=== PATIENT | female | born 1955 | race Caucasian/White ===

== ENCOUNTER 2016-09-02 08:11 | Emergency (ER) | payer MEDICARE ==
[~2016-09-02] VITALS: Ht 170.2 cm; Wt 83.9 kg
[2016-09-02 08:14] VITALS: BP 164/92
--- NOTE | 2016-09-02 08:29 | ED NECK/BACK PAIN COMPLAINT ---
History of Present Illness General Chief Complaint: Low Back Pain/Injury Stated Complaint: LOWER BACK PAIN, RADIATES TO LLE, X 2 WEEKS Source: patient, family, old records Exam Limitations: no limitations Vital Signs & Intake/Output Vital Signs & Intake/Output Vital Signs Date Time Temp Pulse Resp B/P B/P Pulse O2 O2 Flow FiO2 Mean Ox Delivery Rate 09/02 0814 98.6 74 16 164/92 95 Room Air Allergies Coded Allergies: bee venom protein (honey bee) (UNKNOWN 09/02/16) Reconcile Medications Cyclobenzaprine HCl 10 MG TABLET 1 TAB PO TID PRN SPASMS (Reported) Cyclobenzaprine HCl 10 MG TABLET 1 TAB PO Q8P PAIN OR SPASM Losartan Potassium (Cozaar) 25 MG TABLET 1 TAB PO DAILY HEART (Reported) Oxycodone HCl/Acetaminophen (Percocet 5-325 MG Tablet) 5 MG-325 MG TABLET 1-2 TAB PO Q6P PRN PAIN Triage Note: PT STATES THAT SHE HAS HAD L SIDE BACK PAIN FOR THE PAST 10 DAYS ON AND OFF , TAKING ADVIL WITH LITTLE RELIEF AND PMD STARTED HER ON FLEXERIL YESTERDAY. STATES THAT HER BACK WAS IN SPASM ALL LAST NIGHT Triage Nurses Notes Reviewed? yes HPI: Patient has been having pain in her left mid back for approximately the past 2 weeks. The pain is intermittent and is usually relieved with Advil. Patient has no appointment with orthopedic per next week for evaluation of this pain. The pain increased yesterday. The pain occasionally radiates down into her left thigh. The pain is aching in nature. The pain worsens with movement and decreases after she takes Advil. At its worst the pain is an 8 out of 10. There is no weakness or numbness. There is no incontinence of bowel or bladder. There are no fevers or chills. Patient discussed increased pain with her primary care physician yesterday over the phone and was prescribed 5 mg of Flexeril. Patient took one dose but did not feel it did anything so comes into the emergency department for evaluation. Past History Travel History Traveled to [place] past 21 day No Medical History Any Pertinent Medical History? 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 No Review of Systems Review of Systems Constitutional: Reports: no symptoms. Ears, Nose, Throat, Mouth: Reports: no symptoms. Respiratory: Reports: no symptoms. Cardiovascular: Reports: no symptoms. Musculoskeletal: Reports: see HPI, back pain. Neurological/Psychological: Reports: no symptoms. Physical Exam Physical Exam General Appearance: well developed/nourished, alert, awake, mild distress Head: atraumatic Neck: normal inspection, supple, full range of motion, no midline tenderness Respiratory: normal breath sounds, chest non-tender, no respiratory distress, lungs clear Cardiovascular: regular rate/rhythm, normal peripheral pulses Back: CVA tenderness (R), muscle spasm, no vertebral tenderness Extremities: non-tender, normal range of motion Straight Leg Raising: Right: Negative. Left: Negative. Neurologic/Psych: no motor/sensory deficits, awake, alert, oriented x 3, normal mood/affect Skin: intact, normal color, warm/dry Progress Differential Diagnosis: herniated disc, myofascial strain, sciatica, T/L spine injury, ureterolithiasis Plan of Care: Orders Procedure Date/time Status URINALYSIS 09/02 0829 Complete Laboratory Tests 09/02/16 0834: Urine Color YEL, Urine Clarity CLEAR, Urine pH 6.0, Ur Specific Evans 1.015, Urine Protein NEG, Urine Ketones NEG, Urine Nitrite NEG, Urine Bilirubin NEG, Urine Urobilinogen 0.2, Ur Leukocyte Esterase TRACE H, Ur Microscopic SEDIMENT EXAMINED, Urine RBC 1-3, Urine WBC RARE, Ur Epithelial Cells FEW, Urine Hemoglobin SMALL H, Urine Glucose NEG Comments: pt has right cva tenderness, resolved after the percocet and UA negative. Departure Departure Disposition: HOME OR SELF CARE Condition: Stable Clinical Impression Primary Impression: Back pain Referrals: LISE HOUGH,TREVOR (PCP/Family) Additional Instructions: STOP THE PRESCRIPTION THAT WAS PRESCRIBED YESTRERDAY TAKE FLEXERIL Departure Forms: Customer Survey General Discharge Information Prescriptions: Current Visit Scripts Cyclobenzaprine HCl 1 TAB PO Q8P #20 TAB Oxycodone HCl/Acetaminophen (Percocet 5-325 MG Tablet) 1-2 TAB PO Q6P PRN PAIN #20 TAB
[2016-09-02] MEDS ORDERED: COZAAR25 M1 PO (08:34)
[2016-09-02] MEDS ORDERED: CYCLOBENZAPRINE10 M1 PO ×2 (08:35→09:21)
[2016-09-02] MEDS ORDERED: PERCOCET 5-3251 EACH PO (09:21)
[2016-09-03] MEDS ORDERED: PREDNISONE10 M2 PO (21:35)
== END 2016-09-02 09:24 ==
LOC: ERH 08:11
DX: M54.9 Dorsalgia, unspecified (principal)
CPT/HCPCS: 81001

== ENCOUNTER 2016-09-03 19:39 | Emergency (ER) | payer MEDICARE ==
[~2016-09-03] VITALS: Ht 170.2 cm; Wt 81.6 kg
[~2016-09-03 19:39] MED LIST: COZAAR25 M1 PO; CYCLOBENZAPRINE10 M1 PO; PERCOCET 5-3251 EACH PO
[2016-09-03 20:34] LABS: ABSOLUTE BASOPHIL COUNT 0 /CUMM (0.0-0.2); ABSOLUTE EOSINOPHIL COUNT 0.1 /CUMM (0.0-0.7); ABSOLUTE GRANULOCYTE CT 6.6 /CUMM (1.4-6.5); ABSOLUTE LYMPH COUNT 2.2 /CUMM (1.2-3.4); ABSOLUTE MONOCYTE COUNT 0.7 /CUMM (0.10-0.60); BASOPHIL % 0.4 % (0.0-2.0); GRANULOCYTE % 68.9 % (42.2-75.2); HEMATOCRIT 38.9 % (37-47); MEAN CORPUSCULAR HGB 29.2 PG (27.0-31.0); MEAN CORPUSCULAR HGB CONC 33.6 G/DL (33.0-37.0); MEAN CORPUSCULAR VOLUME 86.9 FL (81.0-99.0); PLATELET COUNT 311 /CUMM (130-400); RBC DISTRIBUTION WIDTH 13.4 % (11.5-14.5); RED BLOOD CELL CT 4.47 /CUMM (4.20-5.40); WHITE BLOOD CELL COUNT 9.6 /CUMM (4.8-10.8)
--- NOTE | 2016-09-03 20:36 | ED GENERAL ADULT ---
History of Present Illness General Chief Complaint: Abdominal Pain/Flank Pain Stated Complaint: ABDOMINAL/BACK PAIN Source: patient Exam Limitations: no limitations Vital Signs & Intake/Output Vital Signs & Intake/Output Vital Signs Date Time Temp Pulse Resp B/P B/P Pulse O2 O2 Flow FiO2 Mean Ox Delivery Rate 09/038 98.9 67 18 123/61 94 Room Air 09/03 194 98.9 86 18 149/79 97 Room Air ED Intake and Output 09/04 0000 09/03 1200 Intake Total 120 Output Total Balance 120 Intake, Oral 120 Patient 180 lb Weight Allergies Coded Allergies: venom-honey bee (ANAPHYLAXIS 09/03/16) Reconcile Medications Cyclobenzaprine HCl 10 MG TABLET 1 TAB PO Q8P PAIN OR SPASM Losartan Potassium (Cozaar) 25 MG TABLET 1 TAB PO DAILY HEART (Reported) Oxycodone HCl/Acetaminophen (Percocet 5-325 MG Tablet) 5 MG-325 MG TABLET 1-2 TAB PO Q6P PRN PAIN Prednisone 10 MG TABLET 6 TAB PO DAILY chest pain Triage Note: PT SEEN HERE YESTERDAY FOR PAIN IN HER BACK WHICH SHE CALLED SPASMS , PT RETURNS DUE TO PAIN UNDER BILATERAL BREAST THAT WRAPS AROUND HER BACK, 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 Triage Nurses Notes Reviewed? 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 Patient was seen in the ED yesterday for what initially started as upper back pain, discharged home with Percocet and Flexeril which she reports given her no pain relief. Dates that this morning her pain began to radiate to her lower chest underneath bilateral breasts. Denies fevers, cough, sputum production, URI symptoms, shortness of breath, nausea, vomiting, diaphoresis, pain to the arm or jaw, lightheadedness, dizziness. States that in the past her PMD has treated her with a course of prednisone which she usually has good improvement with. (NIOKLAI BERGER,KYLEE) Past History Travel History Traveled to [place] past 21 day No Medical History Any Pertinent Medical History? 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 No (KYLEE MENCHACA PA-C) Review of Systems Review of Systems Constitutional: Reports: no symptoms. EENTM: Reports: no symptoms. Respiratory: Reports: no symptoms. Cardiovascular: Reports: chest pain. Denies: orthopena, palpitations, syncope. GI: Reports: no symptoms. Genitourinary: Reports: no symptoms. Musculoskeletal: Reports: back pain. Denies: neck pain. Skin: Reports: no symptoms. Neurological/Psychological: Reports: no symptoms. (KYLEE MENCHACA PA-C) Physical Exam Physical Exam General Appearance: well developed/nourished, no apparent distress, alert, awake , comfortable Head: atraumatic Respiratory: normal breath sounds, no respiratory distress, lungs clear, on exam there is tenderness to palpation over bilateral costosternal joints, no tenderness to palpation over the ribs or chest wall Cardiovascular: regular rate/rhythm, normal peripheral pulses Gastrointestinal: soft, non-tender Back: normal inspection, normal range of motion, no vertebral tenderness, on exam there is tenderness to palpation over thebilateral costovertebral joints of the thoracic spine, no midline tenderness to palpation Neurologic/Psych: awake, alert, oriented x 3, normal mood/affect Core Measures ACS in differential dx? Yes CVA/TIA Diagnosis: No Severe Sepsis Present: No Septic Shock Present: No (KYLEE MENCHACA PA-C) Progress Differential Diagnoses I considered the following diagnoses in my evaluation of the patient: [ Costochondritis versus muscle strain versus angina versus NC versus pneumonia versus pleural effusion versus pleurisy] Plan of Care: Orders Procedure Date/time Status TROPONIN LEVEL 09/03 1950 Complete LIPASE 09/03 1950 Complete HEPATIC FUNCTION PANEL 09/03 1950 Complete CBC WITHOUT DIFFERENTIAL 09/03 1950 Complete BASIC METABOLIC PANEL 09/03 1950 Complete AMYLASE 09/03 1950 Complete EKG 09/03 1950 Active Laboratory Tests 09/03/16 2020: Anion Gap 11, Estimated GFR > 60, BUN/Creatinine Ratio 24.3, Glucose 96, Calcium 9.4, Total Bilirubin 0.7, Direct Bilirubin 0.2, AST 20, ALT 38, Alkaline Phosphatase 95, Troponin I < 0.01, Total Protein 7.2, Albumin 3.9, Amylase 66, Lipase 62, CBC w Diff NO MAN DIFF REQ, RBC 4.47, MCV 86.9, MCH 29.2, RDW 13.4, MPV 8.0, Gran % 68.9, Lymphocytes % 22.7, Monocytes % 7.0, Eosinophils % 1.0, Basophils % 0.4, Absolute Granulocytes 6.6 H, Absolute Lymphocytes 2.2, Absolute Monocytes 0.7 H, Absolute Eosinophils 0.1, Absolute Basophils 0, PUBS MCHC 33.6 Exam is highly concerning for costochondritis given that the patient's pain is reproducible over both the costosternal joints and the costovertebral joints of the thoracic spine. EKG showed normal sinus rhythm, and troponin negative. All other labs unremarkable. Will trial course of prednisone as patient has had good improvement with this in the past. (KYLEE MENCHACA PA-C) Initial ED EKG: normal axis, rhythm (sinus), rate (71), no ST T wave changes (KYLEE MENCHACA PA-C) Departure Departure Disposition: HOME OR SELF CARE Condition: Stable Clinical Impression Primary Impression: Chest pain Secondary Impressions: Back pain Referrals: LISE HOUGH,TREVOR (PCP/Family) Additional Instructions: Take 60 mg of prednisone by mouth once daily for 5 days. Follow-up with your primary care provider for further evaluation. Return to the ED for any new or worsening symptoms. Departure Forms: Customer Survey General Discharge Information Prescriptions: Current Visit Scripts Prednisone 6 TAB PO DAILY 5 Days (KYLEE MENCHACA PA-C) PA/CLAY TEMPERER Co-Sign Statement Statement: ED Attending supervision documentation- [] I saw and evaluated the patient. I have also reviewed all the pertinent lab results and diagnostic results. I agree with the findings and the plan of care as documented in the PA's/CLAY TEMPERER's documentation. [x] I have reviewed the ED Record and agree with the PA's/CLAY TEMPERER's documentation. [] Additions or exceptions (if any) to the PAs/CLAY TEMPERER's note and plan are summarized below: [] (ROSEMARY HOUGH,KAREN Lora) Critical Care Note Critical Care Note Critical Care Time: non-applicable (KYLEE MENCHACA PA-C)
[2016-09-03] MEDS ORDERED: PREDNISONE10 M2 PO (21:35)
[2016-09-03 21:48] VITALS: BP 123/61
== END 2016-09-03 21:49 ==
LOC: ERH 19:39
PROVIDERS: Pediatrics
DX: R07.9 Chest pain, unspecified (principal); M54.6 Pain in thoracic spine
CPT/HCPCS: 93005; 93010

== ENCOUNTER 2017-10-16 08:39 | Inpatient (IN) | payer MEDICARE ==
[~2017-10-16] VITALS: Ht 170.2 cm; Wt 83.7 kg
[~2017-10-16 08:39] MED LIST changes: +PREDNISONE10 M2 PO
--- NOTE | 2017-10-16 09:38 | ED GENERAL ADULT ---
History of Present Illness General Chief Complaint: Lower Extremity Problems Stated Complaint: LOWER L LEG WEAKNESS SINCE LAST PM Source: patient Exam Limitations: no limitations Vital Signs & Intake/Output Vital Signs & Intake/Output Vital Signs Date Time Temp Pulse Resp B/P B/P Pulse O2 O2 Flow FiO2 Mean Ox Delivery Rate 10/18 0655 97.4 71 18 118/66 95 Room Air 10/17 2157 98.4 63 18 130/84 94 Room Air 10/17 1423 98.3 66 18 138/76 96 Room Air 10/17 0810 63 110/62 ED Intake and Output 10/18 0000 10/17 1200 Intake Total 850 220 Output Total 500 Balance 850 -280 Intake, Oral 850 220 Number 1 Bowel Movements Output, Urine 500 Patient 185 lb Weight Weight Bed scale Measurement Method Allergies Coded Allergies: venom-honey bee (ANAPHYLAXIS 09/03/16) Reconcile Medications Losartan Potassium (Cozaar) 25 MG TABLET 1 TAB PO DAILY HEART (Reported) Triage Note: PT TO ED C/O LEFT LEG WEAKNESS SINCE YESTERDAY. STATES SHE HAS TENDONITIS OF RIGHT ACHILLES, BUT YESTERDAY LEFT LEG GAVE OUT, CAUSING PT TO ALMOST FALL. PT DID NOT FALL. HAS BEEN USING A CANE OR CRUTCHES AT HOME TO TO HELP WITH WALKING BEARING WEIGHT CAUSES MORE PAIN. TAKEN TO ROOM 8 VIA W/C FOR EVAL. Triage Nurses Notes Reviewed? yes Onset: Abrupt Duration: day(s): (1) Timing: single episode today Injury Environment: home Severity: mild, moderate Severity Numbers: 5 No Modifying Factors: none Modifying Factors: Worsens With: movement. Associated Symptoms: back pain LMP (ages 10-50): post menopausal : No Patient currently breastfeeds: No HPI: 62-year-old female history of hypertension presents for evaluation of weakness in her left lower leg. Patient reports that she first noticed the symptoms yesterday and has been persistent. Patient reports that she has been treated for a right Achilles tendon tendinitis for 6 months she's been doing physical therapy and seeing specialists. Yesterday after her physical therapy session she noted that she had weakness in the left lower extremity. She felt like her foot gave out and dropped. Since then she's felt like her ankle is not plantar or dorsi flexing when she walks. She does report some pain in her heel when she walks but it is mild. No swelling no numbness no tingling. She does report some associated back pain in her lumbar vertebrae. No other extremity weakness or focal neurological deficit no change in vision slurred speech headache chest pain or shortness of breath. (Walt Christian) Past History Travel History Traveled to [place] past 21 day No Medical History Any Pertinent Medical History? 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 No (Walt Christian) Review of Systems Review of Systems Constitutional: Reports: no symptoms. EENTM: Reports: no symptoms. Respiratory: Reports: no symptoms. Cardiovascular: Reports: no symptoms. GI: Reports: no symptoms. Genitourinary: Reports: no symptoms. Musculoskeletal: Reports: see HPI. Skin: Reports: no symptoms. Neurological/Psychological: Reports: see HPI. Hematologic/Endocrine: Reports: no symptoms. Immunologic/Allergic: Reports: no symptoms. All Other Systems: Reviewed and Negative (Walt Christian) Physical Exam Physical Exam General Appearance: well developed/nourished, no apparent distress, alert, awake Head: atraumatic, normal appearance Eyes: Bilateral: normal appearance, PERRL, EOMI. Ears, Nose, Throat: hearing grossly normal Neck: normal inspection, supple, full range of motion Respiratory: normal breath sounds, chest non-tender, no respiratory distress, lungs clear Cardiovascular: regular rate/rhythm, normal peripheral pulses Peripheral Pulses: 2+ radial (R), 2+ radial (L) Gastrointestinal: soft, non-tender Back: normal inspection, normal range of motion, LUMBAR SPINE AND PARASPINAL MUSCLE TENDERNESS PALPATION BILATERALLY Extremities: normal inspection, normal range of motion, no edema Neurologic/Psych: no motor/sensory deficits, awake, alert, oriented x 3, abnormal gait, rd manager II-XII nml as tested, ATAXIC GAIT WHILE AMBULATING PATIENT DOES NOT APPEAR TO BE DORSIFLEXING OR PLANTAR FLEXING THE LEFT FOOT. pATIENT IS ABLE TO DO THIS ON EXAM SHE IS LAYING IN THE BED., MILD CEREBELLAR ATAXIA ON THE LEFT FINGER TO NOSE TEST Reflexes: 1+: knee (R), knee (L). Skin: intact, normal color, warm/dry Core Measures ACS in differential dx? No CVA/TIA Diagnosis: Yes NIH Stroke Scale (24 Hours) NIH Stroke Scale (24 Hours) Response Value Level of Consciousness alert 0 LOC Questions answers both correctly 0 LOC Commands obeys both correctly 0 Best Gaze normal 0 Visual Cervantes no visual loss 0 Facial Paresis normal 0 Motor Arm - Left drift 1 Motor Arm - Right no drift 0 Motor Leg - Left no drift 0 Limb Ataxia present in two limbs 2 Sensory normal 0 Best Language no aphasia 0 Dysarthria normal articulation 0 Extinction and Inattention no neglect 0 Total 3 Date Last Known Well: 10/15/17 Time Last Known Well: 1300 Symptom start date: 10/15/17 Symptom start time: 1299 tPA Risk/Benefit discussion I have discussed the risks, benefits, and alternatives of Alteplase treatment including: - If given promptly, can resolve or have major improvement in stroke symptoms. - Bleeding (hemorrhage) is the most common risk that can occur. - Bleeding may occur into the brain and cause~custodial serious disability~ including - this is rare, affecting about 1% of patients. - Alternative treatments with proven benefit for patients with stroke include aspirin and care in a specialized unit where staff members pay careful attention to a variety of basic aspects of care. tPA given? No Reason tPA not given Pharm Contraindication Swallow Evaluation Pass Swallow eval date 10/16/17 Swallow eval time 1349 Sepsis Present: No Sepsis Focused Exam Completed? No (Walt Christian) Progress Differential Diagnoses I considered the following diagnoses in my evaluation of the patient: [Footdrop, CVA/TIA, lumbar radiculopathy, neuropathy, Lyme disease] Plan of Care: Orders Procedure Date/time Status Evaluate Swallowing 10/17 UNK Complete Therapeutic Exercise 10/17 UNK Complete PT EVAL LOW COMPLEX 20 MIN 10/17 UNK Complete Gait Training 10/17 UNK Complete Current Medications Sig/Rohan Start time Last Medication Dose Stop Time Status Admin Aspirin Buffered 81 MG DAILY 10/17 0900 AC 10/17 (Ecotrin) 0810 Losartan Potassium 25 MG DAILY 10/17 0900 AC 10/17 (Cozaar) 0810 Heparin Sodium 5,000 UNIT Q8 10/16 2200 AC 10/17 (Porcine) 1306 Atorvastatin Calcium 40 MG 1700 10/16 1700 AC 10/17 (Lipitor) 1704 Acetaminophen 650 MG Q6P PRN 10/16 1430 AC (Tylenol) Acetaminophen 1,000 MG Q8P PRN 10/16 1430 AC (Ofirmev) Morphine Sulfate 2 MG Q4P PRN 10/16 1430 AC (MORPHINE SULFATE) PT IS HERE WITH LEFT LOWER LEG ATAXIA SINCE YESTERDAY. SYMPTOMS HAVE BEEN ONGOING FOR ABOUT 24 HOURS. NIH IS 3. DRY HEAD CT IS NEGATIVE FOR ACUTE FINDINGS BUT THERE ARE SOME ACUTE LACUNAR INFARCTS. SPOKE WITH DR CORONA WHO FEELS THIS MAY BE A CVA. NO TPA DUE TO TIME PERIOD (GREATER THAN 24 HOURS NOW) PT WAS GIVEN ASPRIN. LABS ORDERED AND ARE UNREMARKABLE. PT WILL BE ADMITTED TO [facility] FOR FRUTHER EVAL OF POSSIBLE CVA. CASE DISCUSSED WITH DR MODI. Diagnostic Imaging: Viewed by Me: CT Scan. Discussed w/RAD: CT Scan. Radiology Impression: PATIENT: ANA ROSA TURNER PRESENT AGE: 62 PATIENT ACCOUNT NO: [id number] : 54 LOCATION: [facility] ORDERING PHYSICIAN: Walt OSEGUERA SERVICE DATE: 10/16/17 EXAM TYPE: CAT - CT HEAD WO IV CONTRAST EXAMINATION: CT HEAD WITHOUT CONTRAST CLINICAL INFORMATION: Left lower extremity weakness. COMPARISON: No relevant prior imaging. TECHNIQUE: Contiguous axial imaging was performed from the skull base to vertex without intravenous administration of contrast. DLP: 602.05 mGy-cm FINDINGS: There is no acute intracranial hemorrhage or abnormal extra-axial collection. No intracranial mass effect or midline shift. Lateral and third ventricles are proportionate to the subarachnoid spaces. No hydrocephalus. There is relatively extensive hypoattenuation throughout the periventricular white matter that most likely represents a manifestation of chronic small vessel ischemia. A few more discrete lacunar infarcts are visualized within the radiata and basal ganglia. The calvarium and skull base are intact. Mastoid air cells and middle ear cavities are well aerated. Visualized paranasal sinuses are well- aerated. IMPRESSION: There is a relatively extensive pattern of white matter disease that presumably represents a chronic manifestation of small vessel ischemia. A few more discrete lacunar infarcts are visualized within the nielsen radiata and basal ganglia. No evidence of acute intracranial hemorrhage. DICTATED BY: Virgilio HOUGH,Isra Briones DATE/TIME DICTATED:10/16/171033 MOLD MAKER PLASTIC MOLDS:RAYMOND DATE/TIME TRANSCRIBED:10/16/171033 CONFIDENTIAL, DO NOT COPY WITHOUT APPROPRIATE AUTHORIZATION. <Electronically signed in Other Vendor System> SIGNED BY: Isra Poole MD 10/16/17 1041, PATIENT: ANA ROSA TURNER PRESENT AGE: 62 PATIENT ACCOUNT NO: [id number] : 54 LOCATION: [facility] ORDERING PHYSICIAN: Walt OSEGUERA SERVICE DATE: 10/16/17 EXAM TYPE: CAT - CT LUMB SPINE WO IV CONTRAST EXAMINATION: CT LUMBAR SPINE WITHOUT CONTRAST CLINICAL INFORMATION: Weakness in the left lower extremity. Question fracture or disc herniation. COMPARISON: No relevant prior imaging. TECHNIQUE: Roll Inspector images were obtained. CT acquisition of the lumbar spine was performed without intravenous administration of contrast. Data was reformatted into multiplanar images at the acquisition workstation. DLP : 837.7 mGy-cm FINDINGS: There is a chronic compression deformity of the L1 vertebral body with subtle impaction of the upper endplate resulting in 20% vertebral body height loss anteriorly. Chronic upper endplate disc herniations at T12 and L1 are noted. Vertebral body heights are otherwise maintained. There is grade 1 anterolisthesis of L4 on L5. At T12-L1 there is no canal or neuroforaminal compromise. At L1-L2 there is no canal or neuroforaminal compromise. At L2-L3 there is a slightly bulging disc. No canal stenosis. No foraminal nerve root compression. At L3-L4 there is a slightly bulging disc. No canal stenosis. No foraminal nerve root compression. At L4-L5 there is a diffuse and bulge/pseudobulge causing ventral flattening of the thecal sac. Advanced facet degenerative change. No canal stenosis. No foraminal nerve root compression. At L5-S1 the annular contour is normal. Advanced facet degenerative change. No canal stenosis. No foraminal nerve root compression. Limited visualization of the retroperitoneal structures reveals no abnormal finding. Psoas and paraspinal muscle groups are symmetric. IMPRESSION: Multilevel degenerative spondylosis of the lumbar spine with grade 1 anterolisthesis of L4 on L5 related to advanced facet degenerative changes at this level. Grossly no evidence of canal or neuroforaminal compromise. Chronic compression deformity of the L1 vertebral body with subtle impaction upper endplate. Chronic upper endplate disc herniations are also noted at and T12 and L1. DICTATED BY: Virgilio HOUGH,Isra rBiones DATE/TIME DICTATED:10/16/171028 MOLD MAKER PLASTIC MOLDS:RAYMOND DATE /TIME TRANSCRIBED:10/16/171028 Initial ED EKG: normal sinus rhythm, 1st degree av block (Walt Christian) Departure Departure Disposition: STILL A PATIENT Condition: Stable Clinical Impression Primary Impression: CVA (cerebral vascular accident) Qualifiers: CVA mechanism: unspecified Qualified Code: I63.9 - Cerebral infarction, unspecified Referrals: Blanca HOUGH,Marlee (PCP/Family) Departure Forms: Customer Survey General Discharge Information Admission Note Spoke With: Emmett Romero MD Documentation of Exam: Documentation of any treatments & extenuating circumstances including Concerns Regarding Discharge (functional status, medication knowledge or non-compliance, living conditions, etc.) that warrant an admission rather than observation: [ Telemetry, serial EKGs, neurology, MRI, echocardiogram, carotid Dopplers, neuro checks, serial labs] (Walt Christian) Departure Comments 02/16 1159 the patient was evaluated by me. The patient reports weakness in the left leg and trouble walking since yesterday. On physical examination the patient does have minimal weakness in the left lower extremity, 4 out of 5. She has no weakness of the left upper extremity. She has abnormal cerebellar signs and limb ataxia to both left upper and lower extremity. Given these findings, the patient will need to be admitted for neurology consult and MRI. NIH stroke scale is 3. The patient is awake alert and oriented maintaining airway. The patient is not a TPA candidate because of the onset of symptoms yesterday. PA/ED SPECIAL EDUCATION TEACHER Co-Sign Statement Statement: ED Attending supervision documentation- [Y] I saw and evaluated the patient. I have also reviewed all the pertinent lab results and diagnostic results. I agree with the findings and the plan of care as documented in the PA's/ED SPECIAL EDUCATION TEACHER's documentation. [] I have reviewed the ED Record and agree with the PA's/ED SPECIAL EDUCATION TEACHER's documentation. [] Additions or exceptions (if any) to the PAs/ED SPECIAL EDUCATION TEACHER's note and plan are summarized below: [] (Arianne HOUGH,[facility]) Critical Care Note Critical Care Note Critical Care Time: non-applicable (Walt Christian)
--- NOTE | 2017-10-16 10:37 | CT SCAN REPORT ---
EXAMINATION: CT LUMBAR SPINE WITHOUT CONTRAST CLINICAL INFORMATION: Weakness in the left lower extremity. Question fracture or disc herniation. COMPARISON: No relevant prior imaging. TECHNIQUE: Senior Electrical Controls Engineer images were obtained. CT acquisition of the lumbar spine was performed without intravenous administration of contrast. Data was reformatted into multiplanar images at the acquisition workstation. DLP: 837.7 mGy-cm FINDINGS: There is a chronic compression deformity of the L1 vertebral body with subtle impaction of the upper endplate resulting in 20% vertebral body height loss anteriorly. Chronic upper endplate disc herniations at T12 and L1 are noted. Vertebral body heights are otherwise maintained. There is grade 1 anterolisthesis of L4 on L5. At T12-L1 there is no canal or neuroforaminal compromise. At L1-L2 there is no canal or neuroforaminal compromise. At L2-L3 there is a slightly bulging disc. No canal stenosis. No foraminal nerve root compression. At L3-L4 there is a slightly bulging disc. No canal stenosis. No foraminal nerve root compression. At L4-L5 there is a diffuse and bulge/pseudobulge causing ventral flattening of the thecal sac. Advanced facet degenerative change. No canal stenosis. No foraminal nerve root compression. At L5-S1 the annular contour is normal. Advanced facet degenerative change. No canal stenosis. No foraminal nerve root compression. Limited visualization of the retroperitoneal structures reveals no abnormal finding. Psoas and paraspinal muscle groups are symmetric. IMPRESSION: Multilevel degenerative spondylosis of the lumbar spine with grade 1 anterolisthesis of L4 on L5 related to advanced facet degenerative changes at this level. Grossly no evidence of canal or neuroforaminal compromise. Chronic compression deformity of the L1 vertebral body with subtle impaction upper endplate. Chronic upper endplate disc herniations are also noted at and T12 and L1.
--- NOTE | 2017-10-16 10:41 | CT SCAN REPORT ---
EXAMINATION: CT HEAD WITHOUT CONTRAST CLINICAL INFORMATION: Left lower extremity weakness. COMPARISON: No relevant prior imaging. TECHNIQUE: Contiguous axial imaging was performed from the skull base to vertex without intravenous administration of contrast. DLP: 602.05 mGy-cm FINDINGS: There is no acute intracranial hemorrhage or abnormal extra-axial collection. No intracranial mass effect or midline shift. Lateral and third ventricles are proportionate to the subarachnoid spaces. No hydrocephalus. There is relatively extensive hypoattenuation throughout the periventricular white matter that most likely represents a manifestation of chronic small vessel ischemia. A few more discrete lacunar infarcts are visualized within the radiata and basal ganglia. The calvarium and skull base are intact. Mastoid air cells and middle ear cavities are well aerated. Visualized paranasal sinuses are well-aerated. IMPRESSION: There is a relatively extensive pattern of white matter disease that presumably represents a chronic manifestation of small vessel ischemia. A few more discrete lacunar infarcts are visualized within the nielsen radiata and basal ganglia. No evidence of acute intracranial hemorrhage.
[2017-10-16 12:21] LABS: ABSOLUTE BASOPHIL COUNT 0.1 /CUMM (0.0-0.2); ABSOLUTE EOSINOPHIL COUNT 0.1 /CUMM (0.0-0.7); ABSOLUTE GRANULOCYTE CT 6.1 /CUMM (1.4-6.5); ABSOLUTE LYMPH COUNT 2.2 /CUMM (1.2-3.4); ABSOLUTE MONOCYTE COUNT 0.6 /CUMM (0.10-0.60); BASOPHIL % 0.6 % (0.0-2.0); EOSINOPHIL % 0.8 % (0-5); GRANULOCYTE % 67.5 % (42.2-75.2); MEAN CORPUSCULAR HGB 29.9 PG (27.0-31.0); MEAN CORPUSCULAR VOLUME 87.9 FL (81.0-99.0); MEAN PLATELET VOLUME 8.9 FL (7.4-10.4); PLATELET COUNT 334 /CUMM (130-400); RBC DISTRIBUTION WIDTH 13.4 % (11.5-14.5); RED BLOOD CELL CT 4.67 /CUMM (4.20-5.40)
--- NOTE | 2017-10-16 12:29 | RADIOLOGY REPORT ---
EXAMINATION: XR PORTABLE CHEST CLINICAL INFORMATION: Possible CVA. Presumptive diagnosis of pneumonia, CHF. COMPARISON: None TECHNIQUE: Portable AP semierect view of the chest was obtained. FINDINGS: The cardiomediastinal silhouette is borderline normal. Lungs bilaterally are symmetrically well expanded with coarsening of bronchovascular lung markings. No focal consolidation, effusion or pneumothorax is seen. Bony structures are unremarkable. IMPRESSION: Hyperinflated lungs. No evidence of focal pneumonia or CHF.
[2017-10-16 12:36] LABS: PT 11.5 SEC (9.4-12.5); PTT 33 SEC (25-37)
--- NOTE | 2017-10-16 13:45 | History & Physical ---
Michelle Castellano 10/16/17 1342: General Information and HPI MD Statement: I have seen and personally examined ANA ROSA TURNER and documented this H&P. The patient is a 62 year old F who presented with a patient stated chief complaint of left ankle weakness. History of Present Illness: Patient is a 62-year-old female with past medical history of hypertension (only on Losartan 25mg) and no prior stroke history but treated 10 years prior for neurological symptoms diagnosed as Lyme presented to the ED for evaluation of weakness in her left lower leg since last night. Patient claims her left foot "gave out" yesterday at work prior to a physical therapy appointment. Patient currently receieving therapy for plantar fascitis and an Achilles tendon issue on right foot. 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 Patient had a friend come to her home to have further assessment of her new right foot instability and recommended to follow up to the hospital in the morning if the weakness persisted. Patient denied any numbness, tingling or pain to the ankle. She has noticed that her ambulation includes "slapping" her foot to the ground. Denies any chest pain, palpitations, headaches, diziness, fevers, shortness of breath, nausea or vomiting, abdominal pain or change in bowel or bladder movement. No changes in speech or vision reported. Patient denies any previous smoking/tobacco history. Claims to use alcohol 1-2 drinks a day of scotch. No illicit drug use identified. Patient claims she does not use a walker at home and is independent at baseline and lives with her at home. Patients PCP: Dr. Rios Patients Lunchroom Aide: Dr. Billy Allergies/Medications Allergies: Coded Allergies: venom-honey bee (ANAPHYLAXIS 09/03/16) Home Med list Losartan Potassium (Cozaar) 25 MG TABLET 1 TAB PO DAILY HEART (Reported) Past History Travel History Traveled to [place] past 21 day No Medical History Neurological: NONE EENT: NONE Cardiovascular: hypertension Respiratory: NONE Gastrointestinal: NONE Hepatic: NONE Renal: NONE Musculoskeletal: NONE Psychiatric: NONE Endocrine: NONE Blood Disorders: NONE Cancer(s): NONE CNS/Reproductive: NONE Surgical History Surgical History: none Past Family/Social History Psychosocial History Smoking Status: Never Smoked ETOH Use: 1-2 drinks/day Illicit Drug Use: denies illicit drug use Review of Systems Review of Systems Constitutional: Denies: see HPI. Exam & Diagnostic Data Last 24 Hrs of Vital Signs/I&O Vital Signs Date Time Temp Pulse Resp B/P B/P Pulse O2 O2 Flow FiO2 Mean Ox Delivery Rate 10/16 1203 97.6 65 18 143/82 98 Room Air 10/16 0842 97.5 70 20 139/82 98 Room Air Intake & Output 10/16 1600 10/16 0800 10/16 0000 Intake Total Output Total Balance Patient 180 lb Weight Weight Reported by Patient Measurement Method Physical Exam General Appearance Alert, Oriented X3, Cooperative, No Acute Distress Skin No Rashes, No Breakdown HEENT PERRLA, EOMI Neck Supple, No JVD Cardiovascular Regular Rate, Normal S1, Normal S2 Lungs Clear to Auscultation, Normal Air Movement Abdomen Normal Bowel Sounds, Soft, No Tenderness Neurological Normal Speech, Strength at 5/5 X4 Ext, Normal Tone, Reflexes 2+ Extremities No Clubbing, No Cyanosis, No Edema Vascular Normal Pulses, Pulses Symmetrical Last 24 Hrs of Labs/Jonathon: Laboratory Tests 10/16/17 1203: Anion Gap 12, Estimated GFR > 60, BUN/Creatinine Ratio 21.7, Glucose 100 H, Hemoglobin A1c 5.2, Calcium 9.8, Total Bilirubin 0.6, AST 25, ALT 31, Alkaline Phosphatase 95, Troponin I < 0.01, Total Protein 7.2, Albumin 4.0, Globulin 3.2, Albumin/Globulin Ratio 1.3, TSH 2.020, Free T4 1.41, PT 11.5, INR 1.05, APTT 33, CBC w Diff NO MAN DIFF REQ, RBC 4.67, MCV 87.9, MCH 29.9, MCHC 34.0, RDW 13.4, MPV 8.9, Gran % 67.5, Lymphocytes % 24.7, Monocytes % 6.4, Eosinophils % 0.8, Basophils % 0.6, Absolute Granulocytes 6.1, Absolute Lymphocytes 2.2, Absolute Monocytes 0.6, Absolute Eosinophils 0.1, Absolute Basophils 0.1, Lyme Disease Antibody Pending Diagnostic Data EKG Results SR, First degree AV block Assessment/Plan Assessment: This is a 62-year-old female with past medical history significant for hypertension, plantar fasciitis, chronic back pain, prior history of Lyme's disease presented to the emergency room for evaluation of left lower extremity/ foot weakness. Vitals: 97.5, Pulse 70, RR 20, 139/82, 98% RA No significant pertinent Labs. NIH Stroke Scale: 3 CXR: Hyperinflated lungs. No evidence of focal pneumonia or CHF. HEAD CT: IMPRESSION: There is a relatively extensive pattern of white matter disease that presumably represents a chronic manifestation of small vessel ischemia. A few more discrete lacunar infarcts are visualized within the nielsen radiata and basal ganglia. No evidence of acute intracranial hemorrhage. LUMBAR SPINE: IMPRESSION: Multilevel degenerative spondylosis of the lumbar spine with grade 1 anterolisthesis of L4 on L5 related to advanced facet degenerative changes at this level. Grossly no evidence of canal or neuroforaminal compromise. Chronic compression deformity of the L1 vertebral body with subtle impaction upper endplate. Chronic upper endplate disc herniations are also noted at and T12 and L1. Problem List: 1. 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 Hypertension PLAN: * Admit to telemetery * Neurology Dr. Layne Consulted. * Serial troponin/EKG * MRI brain without gadolinium but with diffusion-weighted imaging * ECHO * Carotid duplex dopplers * Aspirin 81 mg EC daily * Atorvastatin 40mg daily * PT/OT/Speech * Stroke Education * Fall Precautions * NIH stroke scale * Neurochecksq4 * Vitals each shift * Follow up lipid panel/HbA1C * Start patient on home medication Losartan 25mg PO from tomorrow Code Status: Full Code DVT PPx: Heparin SC Diet: Regular Pain pathway ordered As Ranked By This Provider Problem List: 1. CVA (cerebral vascular accident) Qualifiers CVA mechanism: unspecified Qualified Code: I63.9 - Cerebral infarction, unspecified Core Measures/Misc (12/10) Acute Coronary Syndrome ACS Diagnosis: No Congestive Heart Failure Congestive Heart Failure Diagnosis No Cerebrovascular Accident CVA/TIA Diagnosis: Yes NIH Stroke Scale: Total 1 Date Last Known Well: 10/16/17 Time Last Known Well: 1300 Symptom Start Date: 10/16/17 Symptom Start Time: 0130 tPA Risk/Benefit discussion I have discussed the risks, benefits, and alternatives of Alteplase treatment including: - If given promptly, can resolve or have major improvement in stroke symptoms. - Bleeding (hemorrhage) is the most common risk that can occur. - Bleeding may occur into the brain and cause~group home serious disability~ including - this is rare, affecting about 1% of patients. - Alternative treatments with proven benefit for patients with stroke include aspirin and care in a specialized unit where staff members pay careful attention to a variety of basic aspects of care. tPA given? No Reason tPA not ordered Medical Contraindication Swallow Evaluation Pass Current/Past Hx AFib/AFlutter No No Antithrombotic d/t Medical Contraindication No Anticoagulant d/t Medical Contraindication No Statin d/t Medical Contraindication VTE (View Protocol) VTE Risk Factors Age>40 No Mechanical VTE Prophylaxis d/t N/A MechProphylax Ordered No VTE Pharm Prophylaxis d/t NA PharmProphylax ordered Sepsis (View protocol) Sepsis Present: No If YES complete Sepsis Event Note If YES complete Sepsis Event Note LupeColton abdalla 10/16/17 1441: Core Measures/Misc (12/10) Sepsis (View protocol) If YES complete Sepsis Event Note If YES complete Sepsis Event Note Resident Review Statement Resident Statement: examined this patient, discussed with manager internal, agreed with manager internal, discussed with family, reviewed EMR data (avail), discussed with nursing , discussed with case mgmt, reviewed images, amended to note Other Findings: This is a 62-year-old female with past medical history significant for hypertension, plantar fasciitis, chronic back pain, prior history of Lyme's disease presented to the emergency room for evaluation of left lower extremity/ foot weakness. Patient reports sudden onset of difficulty walking with the left foot giving out yesterday at work just prior to the physical therapy appointment. Of note patient plantar fasciitis right foot, Achilles tendinitis right side, getting physical therapy every week. She reports problems using left foot persisted since yesterday, presented to the ER for further evaluation Patient denied any chest pain, palpitations, fever, chills, short of breath, nausea, vomiting, abdominal pain, change in bladder or bowel habits. She denied any weakness of other extremities, tingling numbness, sensory changes, speech and vision changes. Other than gait problem she offers no other complaints. She denies smoking, alcohol abuse, illicit drug abuse Vitals afebrile, heart rate 70, respiratory 20, blood pressure 139/80, saturating at 98 on room air On exam HEENT within normal limit, S1-S2 normal, lung sounds normal, abdomen soft nontender nondistended lower extremities no edema no cyanosis no clubbing Neuro exam cranial nerves III through XII intact, motor exam 5/5 all extremities , no sensory changes, reflexes normal, cerebellar exam normal [id number] test, [id number] test. However gait was abnormal, dragging her left foot. Labs CBCs BEP normal limits Troponin normal LFTs normal lumbar spine CT Multilevel degenerative spondylosis of the lumbar spine with grade 1 anterolisthesis of L4 on L5 related to advanced facet degenerative changes at this level. Grossly no evidence of canal or neuroforaminal compromise. Chronic compression deformity of the L1 vertebral body with subtle impaction upper endplate. Chronic upper endplate disc herniations are also noted at and T12 and L1. Head CT There is a relatively extensive pattern of white matter disease that presumably represents a chronic manifestation of small vessel ischemia. A few more discrete lacunar infarcts are visualized within the nielsen radiata and basal ganglia. No evidence of acute intracranial hemorrhage. Stroke, left cerebellar with ataxia of the leg more than arm Patient presented with left lower extremity and left foot weakness, difficulty ambulation. Neuro exam within normal limits except gait ataxia of left leg. CT head showed lacunar infarcts in coronary aorta and basal ganglia. No evidence of hemorrhage. However she is out of the time window for TPA or mechanical thrombectomy. Possible risks factors hypertension. She has no diabetes, smoking history, family history, hyperlipidemia. * Admit to telemetry * Continuous telemetry monitoring * Serial troponin and EKG * Will get MRI head to look for any infarcts which are new * Echocardiogram of heart to look for any valvular abnormalities * Carotid Doppler ultrasound to look for any carotid vessel stenosis * Neurochecks * NIH stroke scale * Fall precaution * Speech and swallow * PT OT * Aspirin 81 daily * Lipitor 40 daily * Follow-up lipid panel and HbA1c Hypertension will start her home medication losartan 25 from tomorrow Full code DVT prophylaxis subcu heparin Regular diet Pain pathway ordered Emmett Romero 10/16/17 1534: Core Measures/Misc (12/10) Sepsis (View protocol) If YES complete Sepsis Event Note If YES complete Sepsis Event Note Attending MD Review Statement Attending Statement Attending MD Statement: examined this patient, discuss w/resident/PA/FERN PICKER, agreed w/resident/PA/FERN PICKER, discussed with family, reviewed EMR data (avail) Attending Assessment/Plan: 62 yr old female with 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 Pt was at work and started having left leg weakness around noon time and she noticed having difficulty going from one patients room to another. She then saw a friend who is a physical therapist and was suggested to come to ER if it does not get better by morning. Pt came to the er today for evaluation as it was not getting better. Pt in ER had normal labs and was given asa and CT head showed old lacunar infarct. On exam pt had some ataxia and positive cerebellar test. Stroke- Will cont on aspirin, and start on statin. will check lipid profile and will get echo, mri brain and carotid ultrasound. Appreciated neuro input . will monitor her on tele . Hyperinflated lungs on cxr- pt is a non smoker. will inquire about passive smoking history. ETOH- pt says she drinks 1-2 drinks a day of hard liquor. will watch her closely. unlikely to withdraw. d/w pt and pts family at bedside the care plan.
--- NOTE | 2017-10-16 14:01 | Cons- Neurology ---
General Information and HPI Consulting Request Date of Consult: 10/16/17 Requested By: Hospitalist Reason for Consult: Sudden ataxia left leg and arm Source of Information: patient, old records Exam Limitations: no limitations History of Present Illness: 62-year-old right-handed woman with no prior history of stroke but treated 10 years ago for neurologic problems eventually diagnosed as Lyme and from which she completely recovered reports sudden onset of difficulty walking with the left foot "giving out" yesterday at work just prior to a physical therapy appointment. She is receiving therapy for plantar fasciitis and an Achilles tendon problem on the right. Problems using the foot persisted and she presented to the ER today. No associated sensory complaints, no headache, no problems with speech and no problems with vision. Allergies/Medications Allergies: Coded Allergies: venom-honey bee (ANAPHYLAXIS 09/03/16) Home Med List: Losartan Potassium (Cozaar) 25 MG TABLET 1 TAB PO DAILY HEART (Reported) Current Medications: Current Medications Sig/Rohan Start time Last Medication Dose Route Stop Time Status Admin Aspirin 0 .STK-MED ONE 10/16 1137 DC PO Aspirin 325 MG ONCE ONE 10/16 1130 DC 10/16 PO 10/16 1131 1141 Review of Systems Review of Systems: No other neurologic complaints as per HPI. 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 Surgical History Surgical History: 1 Psychosocial History Smoking Status: Never Smoked ETOH Use: denies use Illicit Drug Use: denies illicit drug use Exam & Diagnostic Data Vital Signs and I&O Vital Signs Date Time Temp Pulse Resp B/P B/P Pulse O2 O2 Flow FiO2 Mean Ox Delivery Rate 10/16 1203 97.6 65 18 143/82 98 Room Air 10/16 0842 97.5 70 20 139/82 98 Room Air Intake & Output 10/16 1600 10/16 0800 10/16 0000 Intake Total Output Total Balance Patient 180 lb Weight Weight Reported by Patient Measurement Method Physical Exam: Alert, oriented, no apparent distress No carotid bruits and no heart murmur. Pulses intact all 4 extremities Fully oriented, no language errors and no dysarthria. We: General fund of knowledge appear intact Visual herrera full, fundi unremarkable, EOMs full and conjugate without nystagmus, pupils 4 mm equal round and reactive to light. No facial weakness or sensory loss, lower cranial nerves normal Motor power and tone normal extremities Ataxia on finger to nose more than sequential finger tapping on the left, ataxia on heel to lan Gait ataxic Tendon reflexes hypoactive but symmetric, no pathologic signs Sensory intact to touch, vibration and temperature all 4 extremities i Last 48 Hours of Lab Results: Laboratory Tests 10/16 1203 Chemistry Sodium (137 - 145 mmol/L) 144 Potassium (3.5 - 5.1 mmol/L) 4.5 Chloride (98 - 107 mmol/L) 104 Carbon Dioxide (22 - 30 mmol/L) 28 Anion Gap (5 - 16) 12 BUN (7 - 17 mg/dL) 13 Creatinine (0.5 - 1.0 mg/dL) 0.6 Estimated GFR (>60 ml/min) > 60 BUN/Creatinine Ratio (7 - 25 %) 21.7 Glucose (65 - 99 mg/dL) 100 H Calcium (8.4 - 10.2 mg/dL) 9.8 Total Bilirubin (0.2 - 1.3 mg/dL) 0.6 AST (14 - 36 U/L) 25 ALT (9 - 52 U/L) 31 Alkaline Phosphatase (<127 U/L) 95 Troponin I (< 0.11 ng/ml) < 0.01 Total Protein (6.3 - 8.2 g/dL) 7.2 Albumin (3.5 - 5.0 g/dL) 4.0 Globulin (1.9 - 4.2 gm/dL) 3.2 Albumin/Globulin Ratio (1.1 - 2.2 %) 1.3 Coagulation PT (9.4 - 12.5 SEC) 11.5 INR (0.90 - 1.19) 1.05 APTT (25 - 37 SEC) 33 Hematology CBC w Diff NO MAN DIFF REQ WBC (4.8 - 10.8 /CUMM) 9.0 RBC (4.20 - 5.40 /CUMM) 4.67 Hgb (12.0 - 16.0 G/DL) 13.9 Hct (37 - 47 %) 41.0 MCV (81.0 - 99.0 FL) 87.9 MCH (27.0 - 31.0 PG) 29.9 MCHC (33.0 - 37.0 G/DL) 34.0 RDW (11.5 - 14.5 %) 13.4 Plt Count (130 - 400 /CUMM) 334 MPV (7.4 - 10.4 FL) 8.9 Gran % (42.2 - 75.2 %) 67.5 Lymphocytes % (20.5 - 51.1 %) 24.7 Monocytes % (1.7 - 9.3 %) 6.4 Eosinophils % (0 - 5 %) 0.8 Basophils % (0.0 - 2.0 %) 0.6 Absolute Granulocytes (1.4 - 6.5 /CUMM) 6.1 Absolute Lymphocytes (1.2 - 3.4 /CUMM) 2.2 Absolute Monocytes (0.10 - 0.60 /CUMM) 0.6 Absolute Eosinophils (0.0 - 0.7 /CUMM) 0.1 Absolute Basophils (0.0 - 0.2 /CUMM) 0.1 Serology Lyme Disease Antibody Pending Imaging/Other Studies: CT HEAD : IMPRESSION: There is a relatively extensive pattern of white matter disease that presumably represents a chronic manifestation of small vessel ischemia. A few more discrete lacunar infarcts are visualized within the nielsen radiata and basal ganglia. No evidence of acute intracranial hemorrhage. DICTATED BY: Virgilio HOUGH,Isra Briones Assessment/Plan Assessment: Stroke, left cerebellar with ataxia of the leg more than arm Around 24 hours since onset out of the time window for TPA or mechanical thrombectomy Prior lacunar strokes on CT Main risk factor hypertension, no known diabetes, lipid disorder smoking or family history Not on antiplatelet treatment Recommendations: Admit to telemetry MRI brain without gadolinium but with diffusion-weighted imaging Echocardiogram Carotid duplex Dopplers Aspirin 81 mg EC daily Atorvastatin 40 mg daily OT and PT consultations Stroke education Consult Acknowledgment - Thank you for your consult request.
--- NOTE | 2017-10-16 15:34 | Admission Certification ---
Admission Certification Certification Statement - As attending physician, I certify that at the time of - admission, based on clinical presentation, severity of - symptoms, need for further diagnostic testing and - therapeutic interventions, and risk of adverse outcomes - without in-hospital treatment, in my clinical assessment, - this patient requires an acute hospital stay for a minimum - of two nights or longer. I have also considered psychsocial - factors such as support system, advanced age, financial - issues, cognitive issues, and failed out-patient treatments, - past re-admission history, safety of patient, and lack of - compliance as applicable. Specific rationale supporting this admission is: stroke with left leg weakness and ataxia
--- NOTE | 2017-10-16 15:59 | ULTRASOUND REPORT ---
EXAMINATION: US DUPLEX BILATERAL CAROTID CLINICAL INFORMATION: 62-year-old female with hypertension and weakness. COMPARISON: No similar prior examinations available for comparison. TECHNIQUE: Real-time ultrasound and Doppler techniques (integrating B-mode 2D vascular images, Doppler spectral analysis and color flow Doppler imaging) were utilized to interrogate the extracranial carotid and vertebral arteries bilaterally. The degree of stenosis determined by criteria similar to NASCET. FINDINGS: Right side: 1. No appreciable plaque is seen in the ECA/ICA region. 2. The common carotid artery velocity is 60 cm/s. 3. The internal carotid artery velocities are 59 cm/s systolic and 17 cm/s diastolic. 4. The external carotid artery velocity is 134 cm/s. Left side: 1. Small amount of echogenic plaque is seen in the ECA/ICA region. 2. The common carotid artery velocity is 93 cm/s. 3. The internal carotid artery velocities are 84 cm/s systolic and 22 cm/s diastolic. 4. The external carotid artery velocity is 137 cm/s. ADDITIONAL FINDINGS: 1. The vertebral arteries show antegrade flow. 2. Subcentimeter left thyroid nodules suspected but incompletely visualized. IMPRESSION: 1. RIGHT: No significant stenosis of the proximal right internal carotid artery by velocity criteria. 2. LEFT: Minimal, nonhemodynamically significant stenosis of the proximal left internal carotid artery corresponding to a 0-49% stenosis by velocity criteria. 3. No evidence for hemodynamically significant stenosis in the external carotid arteries.
[2017-10-16 17:34] VITALS: BP 154/90
[2017-10-16 22:33] VITALS: BP 140/82
[2017-10-17 06:26] VITALS: BP 110/62
--- NOTE | 2017-10-17 06:47 | PN- Housestaff ---
Michelle Castellano 10/17/17 0647: Subjective Follow-up For: Stroke, left cerebellar with ataxia Hypertension-stable Tele-Events Since Last Visit: Normal sinus rhythm, 89, 0.08, 0.2 Subjective: Patient seen and examined at bedside this morning. Denies any chest pain, palpitation, headaches, dizziness, shortness of breath. Patient was able to ambulate for the team, with walker, presenting with gait instability and left lower extremity foot drop. Otherwise patient does not show any signs of confusion and is alert and oriented to person place and time. Review of Systems Constitutional: Denies: see HPI. Objective Last 24 Hrs of Vital Signs/I&O Vital Signs Date Time Temp Pulse Resp B/P B/P Pulse O2 O2 Flow FiO2 Mean Ox Delivery Rate 10/17 0810 63 110/62 10/17 0626 98.8 63 18 110/62 97 Room Air 10/16 2233 98.4 73 16 140/82 97 10/16 1734 98.4 70 20 154/90 95 10/16 1620 98.3 78 20 140/71 97 Room Air 10/16 1613 98.0 72 18 135/78 98 Room Air Room Air 10/16 1440 98 Room Air Intake & Output 10/17 1600 10/17 0800 10/17 0000 Intake Total 220 200 Output Total 500 Balance -280 200 Intake, Oral 220 200 Output, Urine 500 Patient 191 lb Weight Weight Bed scale Measurement Method Physical Exam General Appearance: Alert, Oriented X3, Cooperative, No Acute Distress Skin: right wrist erythema; itching HEENT: PERRLA, EOMI, Mucous Membr. moist/pink Cardiovascular: Regular Rate, Normal S1, Normal S2 Lungs: Clear to Auscultation, Normal Air Movement Neurological: Decreased range of motion of left lower ankle Strength 4/5 in left upper/lower extremity Strength 5/5 in right upper/lower extremity Reflexes hyperactive Gait-unsteady with evident footdrop using cane Sensation intact Normal speech Extremities: No Clubbing, No Cyanosis, No Edema Vascular: Normal Pulses, Pulses Symmetrical Current Medications: Current Medications Sig/Rohan Start time Last Medication Dose Route Stop Time Status Admin Acetaminophen 650 MG Q6P PRN 10/16 1430 AC PO Acetaminophen 1,000 MG Q8P PRN 10/16 1430 AC IV Aspirin Buffered 81 MG DAILY 10/17 0900 AC 10/17 PO 0810 Atorvastatin Calcium 40 MG 1700 10/16 1700 AC 10/16 PO 1907 Heparin Sodium 5,000 UNIT Q8 10/16 2200 AC 10/17 (Porcine) SC 1306 Loperamide HCl 2 MG ONE ONE 10/17 1300 DC 10/17 PO 10/17 1301 1306 Losartan Potassium 25 MG DAILY 10/17 0900 AC 10/17 PO 0810 Morphine Sulfate 2 MG Q4P PRN 10/16 1430 AC IV Last 24 Hrs of Lab/Jonathon Results Last 24 Hrs of Labs/Mics: Laboratory Tests 10/17/17 0625: Anion Gap 11, Estimated GFR > 60, BUN/Creatinine Ratio 30.0 H, Triglycerides 102, Cholesterol 150, LDL Cholesterol, Calc 91, HDL Cholesterol 39 L, Cholesterol/HDL Ratio 4, CBC w Diff NO MAN DIFF REQ, RBC 4.48, MCV 88.1, MCH 30.1, MCHC 34.1, RDW 13.8, MPV 9.0, Gran % 63.3, Lymphocytes % 28.9, Monocytes % 6.5, Eosinophils % 0.9, Basophils % 0.4, Absolute Granulocytes 5.6, Absolute Lymphocytes 2.5, Absolute Monocytes 0.6, Absolute Eosinophils 0.1, Absolute Basophils 0 10/17/17 0015: Troponin I < 0.01 10/16/17 1815: Urine Color YEL, Urine Clarity HAZY H, Urine pH 6.5, Ur Specific [place] 1.015, Urine Protein NEG, Urine Ketones NEG, Urine Nitrite NEG, Urine Bilirubin NEG, Urine Urobilinogen 0.2, Ur Leukocyte Esterase SMALL H, Ur Microscopic SEDIMENT EXAMINED, Urine RBC 3-5, Urine WBC 5-10 H, Ur Epithelial Cells FEW, Urine Crystals 1+ CA OX H, Urine Bacteria PACKD H, Urine Hemoglobin SMALL H, Urine Glucose NEG 10/16/17 1800: Troponin I < 0.01 Assessment/Plan Assessment: Patient is a 62-year-old female with past medical history of hypertension, plantar fasciitis, chronic back pain, history of Lyme disease who presented to the ED for evaluation of left lower extremity/ankle weakness that began 1 day prior to admission. Head CT on admission demonstrated lacunar infarcts in the nielsen radiata and basal ganglia with no intracranial hemorrhage. Patient was started on Lipitor 40 and aspirin 81 and continued on her home medication of losartan 25. Patient was outside of the window for TPA. Patient was followed up with neurologist Dr. Layne who stated the positions diagnosis to be stroke, left cerebellar with ataxia of the leg was benign. Recommended MRI of the brain without gadolinium but with diffusion-weighted imaging which demonstrated MRI BRAIN: Two small acute infarcts within the right and left frontal lobe nielsen radiata.Extensive T2 prolongation within the bilateral cerebral white matter, gangliocapsular structures, anterior temporal poles, and central eric in addition to numerous microhemorrhages in the cerebral white matter and basal ganglia. 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 - Multiple old lacunar infarcts in the nielsen radiata, basal ganglia, thalami, and eric Problem list: 1. Stroke, left cerebellar with ataxia of left lower ankle greater than right 2. Hypertension Stroke, left cerebellar with ataxia of left lower leg Patient presented to the ED with left lower extremity and left leg weakness and difficulty ambulation. Neuro examination was then within normal limits except for gait ataxia of left lower foot. CT demonstrated with lacunar infarcts in nielsen radiata and basal ganglia. No evidence of hemorrhage. Risk factor of hypertension. 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 Multiple old lacunar infarcts in the nielsen radiata, basal ganglia, thalami, and eric * Continue with aspirin 81 and Lipitor 40 and patient's home medication losartan 25 * Continue to monitor in telemetry unit * Carotid Doppler ultrasounds negative for any significant stenosis * Serial troponin and EKGs negative * Follow-up with PT * Follow-up of Lyme disease antibody * Continue to follow neurology recommendations. CODE STATUS: Full code DVT prophylaxis: Heparin SC Diet: Regular Problem List: 1. CVA (cerebral vascular accident) Pain Ratin Pain Location: Denies pain Pain Goal: Remain pain free Pain Plan: As per pain pathway Tomorrow's Labs & Rationales: N/A DVT/Prophylaxis: mechanical, pharmacological Emmett Romero 10/17/17 1350: Attending MD Review Statement Attending Statement Attending MD Statement: examined this patient, discuss w/resident/PA/COMMERCIAL SEWING INSTRUCTOR, agreed w/resident/PA/COMMERCIAL SEWING INSTRUCTOR, reviewed EMR data (avail), discussed with nursing, discussed with case mgmt Attending Assessment/Plan: Stroke- Pt to get MRI today. carotid ultrasound- no significant stenosis. Await PT consult. on asa and lipitor. Echo pending. d/w pt the care plan.
[2017-10-17 07:46] LABS: ABSOLUTE BASOPHIL COUNT 0 /CUMM (0.0-0.2); ABSOLUTE EOSINOPHIL COUNT 0.1 /CUMM (0.0-0.7); ABSOLUTE GRANULOCYTE CT 5.6 /CUMM (1.4-6.5); ABSOLUTE LYMPH COUNT 2.5 /CUMM (1.2-3.4); ABSOLUTE MONOCYTE COUNT 0.6 /CUMM (0.10-0.60); BASOPHIL % 0.4 % (0.0-2.0); EOSINOPHIL % 0.9 % (0-5); GRANULOCYTE % 63.3 % (42.2-75.2); HEMATOCRIT 39.5 % (37-47); MEAN CORPUSCULAR HGB 30.1 PG (27.0-31.0); MEAN CORPUSCULAR HGB CONC 34.1 G/DL (33.0-37.0); MEAN CORPUSCULAR VOLUME 88.1 FL (81.0-99.0); PLATELET COUNT 303 /CUMM (130-400); RBC DISTRIBUTION WIDTH 13.8 % (11.5-14.5); RED BLOOD CELL CT 4.48 /CUMM (4.20-5.40); WHITE BLOOD CELL COUNT 8.8 /CUMM (4.8-10.8)
--- NOTE | 2017-10-17 11:19 | MRI REPORT ---
EXAMINATION: MR BRAIN WITHOUT CONTRAST CLINICAL INFORMATION: Lacunar stroke. Left leg weakness. Please do diffusion weighted imaging as per neurology is. COMPARISON: Head CT 10/16/2017. TECHNIQUE: Multiplanar, multisequence imaging of the brain was performed without intravenous contrast. \H\ \N\FINDINGS: Two small acute infarcts are identified in the right and left frontal lobe nielsen radiata (series 3 image 64). No large territory infarction is seen. Old bilateral nielsen radiata, basal ganglia, thalamic, and pontine lacunar infarcts are noted. There is no intracranial mass or extra-axial collection. There are numerous scattered foci of susceptibility signal throughout the bilateral basal ganglia and subcortical white matter. No lobar hemorrhage is seen. There is extensive confluent T2 prolongation in the periventricular and deep white matter including within the bilateral gangliocapsular regions, central eric, within the bilateral anterior temporal poles. There is mild diffuse brain parenchymal volume loss with prominence of the ventricles and sulci. The major arterial flow voids are preserved at the skull base. The orbital contents appear normal. IMPRESSION: - Two small acute infarcts within the right and left frontal lobe nielsen radiata. No large territory infarction. - Extensive T2 prolongation within the bilateral cerebral white matter, gangliocapsular structures, anterior temporal poles, and central eric in addition to numerous microhemorrhages in the cerebral white matter and basal ganglia. 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 - Multiple old lacunar infarcts in the nielsen radiata, basal ganglia, thalami, and eric
[2017-10-17 14:23] VITALS: BP 138/76
[2017-10-17 21:57] VITALS: BP 130/84
[2017-10-18 06:55] VITALS: BP 118/66
--- NOTE | 2017-10-18 07:11 | PN- Housestaff ---
Michelle Castellano 10/18/17 0710: Subjective Follow-up For: Stroke, left cerebellar with ataxia Hypertension-stable Tele-Events Since Last Visit: Sinus bradycardia, first-degree block, 54 Subjective: Patient seen and examined at bedside this morning. Patient denies any headaches , dizziness, lightheadedness, chest pain, palpitations or shortness of breath. Patient does not show any signs of confusion or increased focal neurological deficits. Patient continues to have left lower ankle deficits with gait instability. Otherwise patient does not show any signs of confusion and is alert and oriented 4. Was discussed with patient on the findings of her MRI and CT scan. Review of Systems Constitutional: Denies: see HPI. Objective Last 24 Hrs of Vital Signs/I&O Vital Signs Date Time Temp Pulse Resp B/P B/P Pulse O2 O2 Flow FiO2 Mean Ox Delivery Rate 10/18 0811 73 130/80 10/18 0809 73 130/80 10/18 0800 Room Air 10/18 0655 97.4 71 18 118/66 95 Room Air 10/17 2157 98.4 63 18 130/84 94 Room Air 10/17 1423 98.3 66 18 138/76 96 Room Air Intake & Output 10/18 1600 10/18 0800 10/18 0000 Intake Total 350 Output Total 500 Balance -500 350 Intake, Oral 350 Number 1 Bowel Movements Output, Urine 500 Patient 185 lb Weight Weight Bed scale Measurement Method Physical Exam General Appearance: Alert, Oriented X3, Cooperative, No Acute Distress Skin: No Rashes, No Breakdown HEENT: Atraumatic, PERRLA, EOMI, Mucous Membr. moist/pink Cardiovascular: Regular Rate, Normal S1, Normal S2 Lungs: Clear to Auscultation, Normal Air Movement Abdomen: Normal Bowel Sounds, Soft, No Tenderness Neurological: aaox3 no speech deficits noted GEETA; EOMI motor power and tone normal in all extremities Gait instability with left lower ankle decraesed dorsiflexion on range of motion Tendon reflexes intact symmetrically, no pathological signs sensation intact Extremities: No Clubbing, No Cyanosis, No Edema Vascular: Normal Pulses, Pulses Symmetrical Current Medications: Current Medications Sig/Rohan Start time Last Medication Dose Route Stop Time Status Admin Acetaminophen 650 MG Q6P PRN 10/16 1430 AC PO Acetaminophen 1,000 MG Q8P PRN 10/16 1430 AC IV Aspirin Buffered 81 MG DAILY 10/17 0900 AC 07/26 PO 0811 Atorvastatin Calcium 40 MG 1700 10/16 1700 AC 10/17 PO 1704 Heparin Sodium 5,000 UNIT Q8 10/16 2200 AC 10/17 (Porcine) SC 1306 Loperamide HCl 2 MG ONE ONE 10/17 1815 DC 10/17 PO 10/17 181 1851 Loperamide HCl 2 MG ONE ONE 10/17 1300 DC 10/17 PO 10/17 1301 1306 Losartan Potassium 25 MG DAILY 10/17 0900 AC 10/18 PO 0811 Morphine Sulfate 2 MG Q4P PRN 10/16 1430 AC IV Last 24 Hrs of Lab/Jonathon Results Last 24 Hrs of Labs/Mics: Laboratory Tests 10/18/17 0945: C-React Prot High Sens 3.1 H, ESR Westergren Pending 10/18/17 0935: Complement C3 Cancelled, Complement C4 Cancelled Assessment/Plan Assessment: Patient is a 62-year-old female with past medical history of hypertension, plantar fasciitis, chronic back pain, history of Lyme disease who presented to the ED for evaluation of left lower extremity/ankle weakness that began 1 day prior to admission. Head CT on admission demonstrated lacunar infarcts in the nielsen radiata and basal ganglia with no intracranial hemorrhage. Patient was started on Lipitor 40 and aspirin 81 and continued on her home medication of losartan 25. Patient was outside of the window for TPA. Patient was followed up with neurologist Dr. Layne who stated the positions diagnosis to be stroke, left cerebellar with ataxia of the leg was benign. MRI of brain demonstrated 2 small acute infarcts within the righr and left frontol lobe nielsen radiata and extesnive T2 prolongation within bilateral cereberal white matter and multiple old lacunar infarcts in nielsen radiata, basal ganglia, thalami and eric. Problem list: 1. Stroke, left cerebellar with ataxia of left lower ankle greater than right 2. Hypertension Stroke, left cerebellar with ataxia of left lower leg * Re-evaluation by neurology follow with recommendations * F/U ECHO * follow up ESR, CRP, complement levels to rule out evidence of inflammatory causes of ischemia * MRI confirms: two small acute infarcts within the right and left frontal lobe nielsen radiata; findings may reflect angiopathy of small and middle-sized arteries as can be seen with CADASIL (cerebral autosomal dominant arteriopathy with subcortical infarcts and leukoencephalopathy. Multiple old lacunar infarcts in the nielsen radiata, basal ganglia, thalami, and eric * Continue with aspirin 81 and Lipitor 40 and patient's home medication losartan 25 * Continue to monitor in telemetry unit * Carotid Doppler ultrasounds negative for any significant stenosis * Lyme: Negative * Continue to follow neurology recommendation. CODE STATUS: Full code DVT prophylaxis: Heparin SC Diet: Regular Problem List: 1. CVA (cerebral vascular accident) Pain Ratin Pain Location: no pain today Pain Goal: Remain pain free Pain Plan: as per pain pathway Tomorrow's Labs & Rationales: none Emmett Romero 10/18/17 1259: Attending MD Review Statement Attending Statement Attending MD Statement: examined this patient, discuss w/resident/PA/BONE CHAR PULLER, agreed w/resident/PA/BONE CHAR PULLER, reviewed EMR data (avail), discussed with nursing, discussed with case mgmt Attending Assessment/Plan: Stroke. MRI showed 2 acute stoke areas in nielsen radiata, Showing multiple old lacunar infarcts. ? CADISIL. will get neuro to evaluate the MRI. ehco pending. will send esr, crp and complement levels. Possible dc today and will need close f/u with neurology. d/w pt the care plan.
[2017-10-18 08:09] VITALS: BP 130/80
[2017-10-18 14:12] VITALS: BP 118/74
--- NOTE | 2017-10-18 14:49 | PN- Neurology ---
Subjective Subjective: better Review of Systems: no headache, no hx migraine, no family hx CVA or migraines, no psych problem or evidence of dementia Objective Vital Signs and I&Os Vital Signs Date Time Temp Pulse Resp B/P B/P Pulse O2 O2 Flow FiO2 Mean Ox Delivery Rate 10/18 1412 98.6 67 18 118/74 93 Room Air 10/18 0811 73 130/80 10/18 0809 73 130/80 10/18 0800 Room Air 10/18 0655 97.4 71 18 118/66 95 Room Air 10/17 2157 98.4 63 18 130/84 94 Room Air Intake & Output 10/18 1600 10/18 0800 10/18 0000 10/17 1600 10/17 0800 10/17 0000 Intake Total 350 500 220 200 Output Total 500 500 Balance -500 350 500 -280 200 Intake, Oral 350 500 220 200 Number 1 Bowel Movements Output, Urine 500 500 Patient 185 lb 191 lb Weight Weight Bed scale Bed scale Measurement Method Physical Exam: Alert speech clear CN normal power and tone normal still abnormal heel to lan and finger to nose Current Medications: Current Medications Sig/Rohan Start time Last Medication Dose Route Stop Time Status Admin Acetaminophen 650 MG Q6P PRN 10/16 1430 AC PO Acetaminophen 1,000 MG Q8P PRN 10/16 1430 AC IV Aspirin Buffered 81 MG DAILY 10/17 09 AC 10/18 PO 0811 Atorvastatin Calcium 40 MG 1700 10/16 1700 AC 10/17 PO 1704 Heparin Sodium 5,000 UNIT Q8 10/16 2200 AC 10/17 (Porcine) SC 1306 Loperamide HCl 2 MG ONE ONE 10/17 1815 DC 10/17 PO 10/17 1816 1851 Losartan Potassium 25 MG DAILY 10/17 0900 AC 10/18 PO 0811 Morphine Sulfate 2 MG Q4P PRN 10/16 1430 AC IV Results Last 24 Hours of Lab Results: Laboratory Tests 10/18 10/18 0945 0935 Chemistry C-React Prot High Sens (1.0 - 3.0 mg/L) 3.1 H Hematology ESR Westergren (0 - 20 MM) 22 H Immunology Complement C3 Cancelled Complement C4 Cancelled Recent Imaging Studies: MRI: - Two small acute infarcts within the right and left frontal lobe nielsen radiata. No large territory infarction. - Extensive T2 prolongation within the bilateral cerebral white matter, gangliocapsular structures, anterior temporal poles, and central eric in addition to numerous microhemorrhages in the cerebral white matter and basal ganglia. 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 - Multiple old lacunar infarcts in the nielsen radiata, basal ganglia, thalami, and eric Dopplers 1. RIGHT: No significant stenosis of the proximal right internal carotid artery by velocity criteria. 2. LEFT: Minimal, nonhemodynamically significant stenosis of the proximal left internal carotid artery corresponding to a 0-49% stenosis by velocity criteria. Assessment/Plan Assessment: CVA, acute, clinically improving location is basal ganglia rather than cerebellum dyscontrol of movements more likely are apraxia (ataxia refers to cerebellar abn) MRI highly suggestive of CADASIL but no supportive clinical hx Plan: If echo OK may be discharged on ASA, statin send NOTCH3 gene, if cadasil patient at risk for eventual development of fvascular dementia out-pt fPT out-pt follow-up in 3-4 weeks have pt follow BPs at home
[2017-10-18] MEDS ORDERED: LIPITOR40 M1 PO ×2 (15:00→15:16)
[2017-10-18] MEDS ORDERED: ASPIRIN EC81 M1 PO ×3 (15:00→18:14)
--- NOTE | 2017-10-18 15:04 | Patient Discharge Instructions ---
Discharge Instructions General Discharge Information You were seen/treated for: CVA, acute, clinically improved-basal ganglia Watch for these problems: Increasing headache, dizziness, visual changes, chest pain, palpitations, extremity weakness/numbness, facial droop, bowel/bladder incontinence Special Instructions: Please follow up with PCP within 1 week of discharge. Please follow up outpatient with Dr. Peter Layne within 3 weeks of discharge. Follow up blood pressure at home. Diet Continue normal diet: Yes Acute Coronary Syndrome Inclusion Criteria At DC or during hospital stay patient has or had the following: ACS DIAGNOSIS No Discharge Core Measures Meds if any: Prescribed or Continued at Discharge Meds if any: NOT Prescribed or Continued at Discharge Congestive Heart Failure Inclusion Criteria At DC or during hospital stay patient has or had the following: CHF DIAGNOSIS No Discharge Core Measures Meds if any: Prescribed or Continued at Discharge Meds if any: NOT Prescribed or Continued at Discharge Cerebrovascular accident Inclusion Criteria At DC or during hospital stay patient has or had the following: CVA/TIA Diagnosis Yes Discharge Core Measures Meds if any: Prescribed or Continued at Discharge Antithrombotic Yes Statin (required if LDL =>70) Yes Anticoagulant Yes Meds if any: NOT Prescribed or Continued at Discharge Venous thromboembolism Inclusion Criteria VTE Diagnosis No VTE Type NONE VTE Confirmed by (Test) NONE Discharge Core Measures - Per Current guidelines, there needs to be overlap - treatment for the first 5 days of Warfarin therapy. - If discharged on Warfarin prior to 5 days of - overlap therapy, the patient will need to be - assessed for post discharge needs including - *Post discharge parental anticoagulation - *Warfarin and/or parental anticoagulation education - *Follow up date to check INR post discharge At least 5 days overlap therapy as Inpatient No Meds if any: Prescribed or Continued at Discharge Note: Overlap Therapy is Warfarin and Anticoagulant Meds if any: NOT Prescribed or Continued at Discharge
--- NOTE | 2017-10-18 18:05 | ECHOCARDIOGRAM REPORT ---
ANA ROSA TURNER Age: 62 : 1955 Gender: F Exam Date: 10/17/2017 15:35 Exam Location: [place] Ht (in): 66 Wt (lb): 180 BSA: 1.97 BP: 110 / 62 Ordering Physician: Ana Decker MD Referring Physician: Ana Decker MD Technologist: Brenda Puckett [facility] Room Number: 188 Indications: Stroke Rhythm: Sinus Technical Quality: Good FINDINGS Left Ventricle Normal size left ventricle. Mild to moderate concentric left ventricular hypertrophy.normal left ventricular ejection fraction visually estimated at >65 %. No obvious regional wall motion abnormalities. Normal left ventricular diastolic filling pattern for age. Right Ventricle The right ventricle is normal in size and function. Right Atrium The right atrium is normal in size. Left Atrium The left atrium is normal in size. The interatrial septum is intact. Mitral Valve The mitral valve is normal in structure and function. There is trace mitral regurgitation. Aortic Valve Structurally normal aortic valve without significant sclerosis or stenosis. There is no aortic regurgitation. Tricuspid Valve The tricuspid valve is normal in structure and function. There is trace tricuspid regurgitation. Pulmonary artery systolic pressure is normal. Pulmonic Valve Structurally normal pulmonic valve. There is trace pulmonic regurgitation. Pericardium Normal pericardium without effusion. No pleural effusion. Great Vessels Normal aortic root dimension. The aortic arch and great vessels are well seen and are normal. trace CONCLUSIONS Mild to moderate concentric left ventricular hypertrophy. Normal left ventricular ejection fraction visually estimated at >65 %. The left atrium is normal in size. No significant valve abnormalities. Physiologic valvular regurgitation. Pulmonary artery systolic pressure is normal. Josue Flores M.D. (Electronically Signed) Final Date: 18 October 2017 18:02 MEASUREMENTS (Male / Female) Normal Values 2D ECHO LV Diastolic Diameter PLAX 4.2 cm 4.2 - 5.9 / 3.9 - 5.3 cm LV Systolic Diameter PLAX 2.1 cm 2.1 - 4.0 cm LV Fractional Shortening PLAX 50.0 % 25 - 46 % LV Ejection Fraction 2D Teich 81.7 % IVS Diastolic Thickness 1.3 cm LVPW Diastolic Thickness 1.3 cm LV Relative Wall Thickness 0.6 RV Internal Dim ED PLAX 2.3 cm 1.9 - 3.8 cm LVOT Diameter 1.8 cm Aortic Root Diameter 2.6 cm LA Systolic Diameter LX 3.9 cm 3.0 - 4.0 / 2.7 - 3.8 cm LA Volume 21.0 cm 18 - 58 / 22 - 52 cm Ascending Aorta Diameter 3.5 cm DOPPLER AV Peak Velocity 130.0 cm/s AV Peak Gradient 6.8 mmHg AV Mean Velocity 83.8 cm/s AV Mean Gradient 3.0 mmHg AV Velocity Time Integral 24.9 cm LVOT Peak Velocity 96.3 cm/s LVOT Peak Gradient 3.7 mmHg LVOT Mean Velocity 62.5 cm/s LVOT Mean Gradient 2.0 mmHg LVOT Velocity Time Integral 20.8 cm LVOT Stroke Volume 52.9 cm AV Area Cont Eq vti 2.1 cm AV Area Cont Eq pk 1.9 cm MV Peak Velocity 91.7 cm/s MV Peak Gradient 3.4 mmHg MV Mean Velocity 47.0 cm/s MV Mean Gradient 1.0 mmHg Mitral E Point Velocity 56.8 cm/s Mitral A Point Velocity 69.1 cm/s Mitral E to A Ratio 0.8 MV PHT Velocity 74.7 cm/s MV Deceleration [place] 250.0 cm/s MV Pressure Half Time 89.6 ms MV Area PHT 2.5 cm MV Deceleration Time 288.0 ms TR Peak Velocity 183.0 cm/s TR Peak Gradient 13.4 mmHg Right Atrial Pressure 5.0 mmHg Pulmonary Artery Systolic Pressure 18.4 mmHg Right Ventricular Systolic Pressure 18.4 mmHg PV Peak Velocity 110.0 cm/s PV Peak Gradient 4.8 mmHg PV Mean Velocity 69.0 cm/s PV Mean Gradient 2.0 mmHg PV Velocity Time Integral 28.3 cm LV E' Lateral Velocity 7.9 cm/s Mitral E to LV E' Lateral Ratio 7.2 LV E' Septal Velocity 11.4 cm/s Mitral E to LV E' Septal Ratio 5.0
[2017-10-18] MEDS ORDERED: ATORVASTATIN CA40 M1 PO (18:14)
--- NOTE | 2017-10-19 08:34 | Discharge Summary ---
Visit Information Visit Dates Admission Date: 10/16/17 Discharge Date: 10/18/17 Hospital Course Course Attending Physician: Heather HOUGH,Emmett Magallon Primary Care Physician: Blanca HOUGH,[facility] Course: HOSPITAL COURSE: Patient is a 62-year-old female with past medical history of hypertension (only on Losartan 25mg) and no prior stroke history but treated 10 years prior for neurological symptoms diagnosed as Lyme presented to the ED for evaluation of weakness in her left lower leg since last night. Patient claimed her left foot "gave out" yesterday at work prior to a physical therapy appointment. Patient currently receieving therapy for plantar fascitis and an Achilles tendon issue on right foot. 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 Patient had a friend come to her home to have further assessment of her new right foot instability and recommended to follow up to the hospital in the morning if the weakness persisted. Patient denied any numbness, tingling or pain to the ankle. She has noticed that her ambulation includes "slapping" her foot to the ground. Denies any chest pain, palpitations, headaches, diziness, fevers, shortness of breath, nausea or vomiting, abdominal pain or change in bowel or bladder movement, changes in speech or facial droop. No changes in vision reported. Patient denies any previous smoking/tobacco history or second hand smoke. Claims to use alcohol 1-2 drinks a day of scotch. No illicit drug use identified. Patient claims she does not use a walker at home and is independent at baseline and lives with her at home. Patients PCP: Dr. Rios Patients Tipple Engineer: Dr. Billy EMERGEGENCY DEPARTMENT: Vitals: 98.2, 63 HR, 18 RR, 110/62, 96%RA NIH Stroke Scale: 3; No TPA given Troponins: Negative EKG: NSR CXR: Hyperinflated lungs. No evidence of focal pneumonia or CHF. CT HEAD: There is a relatively extensive pattern of white matter disease that presumably represents a chronic manifestation of small vessel ischemia. A few more discrete lacunar infarcts are visualized within the nielsen radiata and basal ganglia. No evidence of acute intracranial hemorrhage. CAROTID DOPPLER: 1. RIGHT: No significant stenosis of the proximal right internal carotid artery by velocity criteria. 2. LEFT: Minimal, nonhemodynamically significant stenosis of the proximal left internal carotid artery corresponding to a 0-49% stenosis by velocity criteria. 3. No evidence for hemodynamically significant stenosis in the external carotid arteries. ECHOCARDIOGRAM: CONCLUSIONS Mild to moderate concentric left ventricular hypertrophy. Normal left ventricular ejection fraction visually estimated at >65 %. The left atrium is normal in size. No significant valve abnormalities. Physiologic valvular regurgitation. Pulmonary artery systolic pressure is normal. HEAD MRI: - Two small acute infarcts within the right and left frontal lobe nielsen radiata. No large territory infarction. - Extensive T2 prolongation within the bilateral cerebral white matter, gangliocapsular structures, anterior temporal poles, and central eric in addition to numerous microhemorrhages in the cerebral white matter and basal ganglia. 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 - Multiple old lacunar infarcts in the nielsen radiata, basal ganglia, thalami, and eric ADMISSION TO TELEMETRY: PROBLEM LIST: 1. Acute CVA 2. Hypertension ACUTE CVA Patient admitted to telemetry unit for further monitoring given positive CT and MRI findings as noted above. Patient presented with a left lower extremity weakness but denied any syncopal episodes, headaches, dizziness, lost of conciousness or any other focal neurological deficits. No changes in speech or facial droop was reported prior to admission or during her stay. Patient was out of window for tPA. Immediately started on aspirin 81 and lipitor daily. Serial troponins and EKG were negative to rule out ACS or any acute coronary process. NEurochecks were monitored as were vitals. PT/OT was consulted. ECHO cardiogram was ordered. Patients home medication losartan was resumed. Dr. Layne of neurology reccomended to send a NOTCH 3 gene given patient sMRI finding of CADASIL without any clinical supportive history (migraines, etc.). Patient advised to follow up with PT and neurology outpatient and to monitor blood pressures at home consistently. Code Status: Full Code DVT PPx: Heparin SC Diet: Regular Diet Allergies: Coded Allergies: venom-honey bee (ANAPHYLAXIS 09/03/16) Disposition Summary Disposition Principal Diagnosis: Acute CVA Additional Diagnosis: Hypertension Discharge Disposition: home or self care Discharge Instructions General Discharge Information Code Status: Full Code Patient's Diet: Regular Diet Patient's Activity: As tolerated Follow-Up Instructions/Appts: Please follow up with PCP within 1-2 weeks of discharge Please follow up with Neurologist Dr. Layne with 2-3 weeks of discharge Continue aspirin and statin medication and home losartan. Monitor blood pressures at home. Medications at Discharge Discharge Medications: Continue taking these medications: Losartan Potassium (Cozaar) 25 MG TABLET 1 Tablet ORAL DAILY Comments: Last Taken: 10/18/17 Time: 9AM Start taking the following new medications: Atorvastatin Calcium (Lipitor) 40 MG TABLET 1 Tablet ORAL DAILY Qty = 30 No Refills Instructions: . Comments: Last Taken: 10/18/17 Time: 4PM Aspirin (Ecotrin*) 81 MG TABLET.DR 1 Tablet ORAL DAILY Qty = 30 No Refills Instructions: . Comments: Last Taken: 10/18/17 Time: 9AM Copies To: Xi HOUGH,Peter Louis; Blanca HOUGH,Marlee; Mariajoes HOUGH,Madan Loya
== END 2017-10-18 18:45 | DRG 66 ==
LOC: ERH 08:39 → ERHI 13:45 → 1NO 13:45 → ENRESERV 15:42 → ENTRNSPT 17:07 → EDTRNSPT 17:12 → EDTRNSPTSTS 17:12 → 1NO 17:22 → CMPTRNSPT 17:36 → ENTRNSPT 10-18 18:30 → 1NO 10-18 18:45 → EDTRNSPTSTS 10-18 18:58 → EDTRNSPT 10-18 18:58 → CMPTRNSPT 10-18 19:01
PROVIDERS: Hospitalist; Physician Assistant Medical
DX: I63.9 Cerebral infarction, unspecified (principal); R27.0 Ataxia, unspecified; I10 Essential (primary) hypertension
CPT/HCPCS: 1NP; 70551; 86160; 86618; 36415; 36592; 71045; 81001; 82436; 93005; 93010; 93306; 97110-GO; 97116-GO; 97161-GP; J0131; J1644; J3490